=== PATIENT | male | born 1995 | race Caucasian/White ===

== ENCOUNTER 2016-08-14 02:35 | Emergency (ER) | payer OTHER ==
--- NOTE | 2016-08-14 03:26 | ED ---
Overdose HPI - General Chief Complaint: Overdose Stated Complaint: Drug reaction Time Seen by Provider: 08/14/16 03:00 Source: patient, police, RN notes reviewed Mode of arrival: ambulatory Limitations: no limitations - History of Present Illness Initial Comments: Is a 21-year-old male with a benign past medical history who is brought in by police for evaluation after being arrested apparently for driving under the influence. The patient admitted to taking acid at approximately 11 PM last evening. He states it done before he denies any alcohol or other drugs he has a cough fevers chills nausea vomiting sweats. He is acting somewhat paranoid. He states this is exactly how he acted last time he used acid. He denies any desire to hurt himself or anyone else. MD Complaint: other - Related Data Home Medications Medication Instructions Recorded Confirmed Unable To Assess [Unable to Assess] 08/14/16 08/14/16 Allergies Allergy/AdvReac Type Severity Reaction Status Date / Time Unable to Assess Allergy Verified 08/14/16 02:49 Review of Systems ROS Statement: Those systems with pertinent positive or pertinent negative responses have been documented in the HPI. ROS Other: All systems not noted in ROS Statement are negative. Past Medical History Past Medical History: No Reported History History of Any Multi-Drug Resistant Organisms: None Reported Past Surgical History: No Surgical Hx Reported Past Psychological History: No Psychological Hx Reported Smoking Status: Current every day smoker Past Alcohol Use History: Daily Past Drug Use History: Methamphetamine General Exam - General Exam Comments Initial Comments: This is a well-developed well-nourished awake alert oriented history male he is acting anxious Limitations: no limitations General appearance: alert, anxious Head exam: Present: atraumatic, normocephalic, normal inspection Eye exam: Present: normal appearance, PERRL, EOMI. Absent: scleral icterus, conjunctival injection, periorbital swelling ENT exam: Present: normal exam, mucous membranes moist Neck exam: Present: normal inspection. Absent: tenderness, meningismus, lymphadenopathy Respiratory exam: Present: normal lung sounds bilaterally. Absent: respiratory distress, wheezes, rales, rhonchi, stridor Cardiovascular Exam: Present: regular rate, normal rhythm, normal heart sounds. Absent: systolic murmur, diastolic murmur, rubs, gallop, clicks GI/Abdominal exam: Present: soft, normal bowel sounds. Absent: distended, tenderness, guarding, rebound, rigid Extremities exam: Present: normal inspection, full ROM, normal capillary refill. Absent: tenderness, pedal edema, joint swelling, calf tenderness Back exam: Present: normal inspection Neurological exam: Present: alert, oriented X3, CN II-XII intact Psychiatric exam: Present: anxious Skin exam: Present: warm, dry, intact, normal color. Absent: rash Course Vital Signs 08/14/16 02:50 Temperature 98.4 F Pulse Rate 112 H Respiratory 20 Rate Blood Pressure 154/89 O2 Sat by Pulse 98 Oximetry Medical Decision Making - Medical Decision Making Patient will be discharged with police he is to go to prison. He did blow a negative on the breathalyzer test per police. The half-life for LSD is approximately the 6 hours the actions are usually 6-8 hours. Disposition Clinical Impression: Drug intoxication, Medical clearance for incarceration Disposition: HOME SELF-CARE Condition: Good Additional Instructions: Do not use drugs anymore. The patient is medically cleared for prison he will leave with police officers.
[2016-08-14 05:15] VITALS: BP 148/76; PULSE 98; RESP 18; TEMP 97.8
== END 2016-08-14 05:15 | disposition home or self-care (01) ==
LOC: EC 02:35
DX: T50.995A Adverse effect of other drugs, medicaments and biological substances, initial encounter (principal); F17.200 Nicotine dependence, unspecified, uncomplicated
CPT/HCPCS: 99284